=== PATIENT | female | born 2000 | race Caucasian/White ===

== ENCOUNTER → 2018-10-15 00:08 | Emergency (ER) | payer BC ==
--- NOTE | 2018-10-15 00:38 | ED ---
Adult Trauma - HPI Summary HPI Summary: Patient complains of fall from sled with abrasion to left forehead and pain in left wrist. Denies LOC, HERNÁNDEZ, N/V, vision change, dizziness, neck pain, any other pain, injury, symptoms. Ambulatory since event. Tetanus status up-to- date. - History of Current Complaint Chief Complaint: EDExtremityUpper Stated Complaint: WRIST INJURY Time Seen by Provider: 10/15/18 00:17 Hx Obtained From: Patient Mechanism of Injury: Fall Ambulatory at the Scene: Yes Loss of Consciousness: no loss of consciousness Force: Low Restraints: None Onset/Duration: Started Minutes Ago Onset of Pain: Immediate Onset Severity: Moderate Current Severity: Moderate Pain Intensity: 6 Pain Scale Used: 0-10 Numeric Location: Head, Extremities Character: Aching Aggravating Factor(s): Movement Alleviating Factor(s): Rest Associated Signs & Symptoms: Positive: Negative - Allergy/Home Medications Allergies/Adverse Reactions: Allergies Allergy/AdvReac Type Severity Reaction Status Date / Time No Known Allergies Allergy Verified 10/15/18 01:44 Home Medications: Home Medications NK [No Home Medications Reported] 10/15/18 [History Confirmed 10/15/18] PMH/Surg Hx/FS Hx/Imm Hx Endocrine/Hematology History: Denies: Hx Anticoagulant Therapy Cardiovascular History: Denies: Hx Cardiac Arrest History: Denies: Hx Dialysis Neurological History: Denies: Hx CVA Infectious Disease History: No Infectious Disease History: Denies: Traveled Outside the [place] in Last 30 Days Review of Systems Constitutional: Negative Eyes: Negative ENT: Negative Cardiovascular: Negative Respiratory: Negative Gastrointestinal: Negative Genitourinary: Negative Positive: Arthralgia Skin: Negative Neurological: Negative Psychological: Normal All Other Systems Reviewed And Are Negative: Yes Physical Exam - Summary Physical Exam Summary: No ecchymosis, erythema, deformity noted to left wrist. Mild swelling medially. Positive snuffbox tenderness. PMS intact distally. Very superficial laceration in left eyebrow. Neuro exam normal. Patient alert and oriented responding appropriately. Triage Information Reviewed: Yes Vital Signs On Initial Exam: Initial Vitals Temp Pulse Resp BP Pulse Ox 98.4 F 110 18 141/91 98 10/15/18 00:10 10/15/18 00:10 10/15/18 00:10 10/15/18 00:10 10/15/18 00:10 Vital Signs Reviewed: Yes Appearance: Positive: Well-Appearing Skin: Positive: Warm Head/Face: Positive: Normal Head/Face Inspection Eyes: Positive: Normal ENT: Positive: Normal ENT inspection Neck: Positive: Supple Respiratory/Lung Sounds: Positive: Clear to Auscultation Cardiovascular: Positive: Normal Abdomen Description: Positive: Nontender Musculoskeletal: Positive: Normal Neurological: Positive: Normal Psychiatric: Positive: Normal AVPU Assessment: Alert - [place] Coma Scale Best Eye Response: 4 - Spontaneous Best Motor Response: 6 - Obeys Commands Best Verbal Response: 5 - Oriented Coma Scale Total: 15 Procedures - Splinting 1 Hand-Made Type: orthoglass Splint: thumb spica Pre-Proc Neuro Vasc Exam: normal Post-Proc Neuro Vasc Exam: normal - Laceration/Wound Repair 1 Location: face Description: Linear Length, Depth and Shape: 2cm x .25cm Betadine Prep?: Yes Irrigated w/ Saline (ccs): 20 Laceration/Wound Explored: clean Closure: Skin Adhesive Debridement: minimal Number of Sutures: 0 Layer Closure?: No Sterile Dressing Applied?: No Diagnostics - Vital Signs Vital Signs Temp Pulse Resp BP Pulse Ox 10/15/18 00:10 98.4 F 110 18 141/91 98 - Laboratory Lab Statement: Any lab studies that have been ordered have been reviewed, and results considered in the medical decision making process. Adult Trauma Course/Dx - Course Course Of Treatment: Patient complains of fall from sled with abrasion to left forehead and pain in left wrist. Denies LOC, HERNÁNDEZ, N/V, vision change, dizziness , neck pain, any other pain, injury, symptoms. Ambulatory since event. Physical exam:No ecchymosis, erythema, deformity noted to left wrist. Mild swelling medially. Positive snuffbox tenderness. PMS intact distally. Very superficial laceration in left eyebrow. Neuro exam normal. Patient alert and oriented responding appropriately. Vital signs within normal limits. X-ray negative for acute process. Positive snuffbox tenderness and longitudinal tenderness on left thumb. Thumb spica splint placed. Patient advised to follow -up for repeat x-ray in 2 weeks. Patient understands potential for scaphoid fracture and potential for avascular necrosis. Understands and approves plan. - Diagnoses Provider Diagnoses: Laceration, Wrist pain, acute Discharge - Sign-Out/Discharge Documenting (check all that apply): Patient Departure - Discharge Plan Condition: Stable Disposition: HOME Patient Education Materials: Wrist Injury (ED), Suspected Fracture (ED), Scaphoid Fracture (ED), Facial Laceration (ED), Skin Adhesive Care (ED) Referrals: No Primary Care Phys,NOPCP [Primary Care Provider] - [facility] [Outside] Additional Instructions: May wash face with warm running water and soap. Do not submerge for couple days. Get repeat x-ray on left wrist in 2 weeks. Keep splint on left wrist until until confirmed there is no fracture. Cover splint with plastic bag when showering. Return to the ED for any new or worsening symptoms - Billing Disposition and Condition Condition: STABLE Disposition: Home
[2018-10-15 02:06] VITALS: BP 124/82
--- NOTE | 2018-10-15 07:33 | PN ---
Progress Note - Progress Note Date of Service: 10/15/18 Note: radiology report from morning: IMPRESSION: NONDISPLACED INTRA-ARTICULAR FRACTURE OF THE DISTAL RADIUS. patient was placed in thumb spica per note. called and left vm explained results and importance of leaving wrist splint on and following up with ortho.
== END | disposition home or self-care (01) ==
LOC: ED 00:08
DX: S01.112A Laceration without foreign body of left eyelid and periocular area, initial encounter (principal); S52.572A Other intraarticular fracture of lower end of left radius, initial encounter for closed fracture; W19.XXXA Unspecified fall, initial encounter; Y93.23 Activity, snow (alpine) (downhill) skiing, snowboarding, sledding, tobogganing and snow tubing; Y92.9 Unspecified place or not applicable
CPT/HCPCS: 12011; 99282